=== PATIENT | female | born 1975 | race Caucasian/White ===

== ENCOUNTER 2022-02-24 10:56 | Emergency (ER) | payer OTHER ==
[2022-02-24 11:44] VITALS: BP 117/63; PULSE 94; TEMP 99.3; BMI 27.3
[2022-02-24] MEDS ORDERED: ACETAMINOPHEN 500 MG TABLET (FP) PO ONE (12:52)
[2022-02-24] MEDS ORDERED: ACETAMINOPHEN 325 MG TABLET (FP) ONE (13:33)
[2022-02-24 13:51] LABS: THROAT:GRP A STREP NOT DETECTED (NOTDETECTED)
== END 2022-02-24 15:28 | disposition home or self-care (01) ==
LOC: JER 10:56
DX: R05.1 Acute cough (principal); J02.9 Acute pharyngitis, unspecified; R09.81 Nasal congestion
CPT/HCPCS: 0241U-QW; 71046-TC-FY; 87651; 99284-25

== ENCOUNTER 2022-03-09 23:24 | Emergency (ER) | payer OTHER ==
[2022-03-09 23:53] VITALS: BP 113/72; PULSE 89; TEMP 98.4; BMI 28.9
[2022-03-10] MEDS ORDERED: KETOROLAC TROMETHAMINE 30 MG/1 ML VIAL IM ONE (01:38)
[2022-03-10] MEDS ORDERED: LIDOCAINE 5% TOPICAL PATCH TP ONE (01:38)
[2022-03-10] MEDS ORDERED: KETOROLAC TROMETHAMINE 30 MG/1 ML VIAL ONE (01:42)
[2022-03-10] MEDS ORDERED: LIDOCAINE 5% TOPICAL PATCH ONE (01:42)
[2022-03-10] MEDS ORDERED: LIDOCAINE PATCH REMOVAL MC SCH (22:00)
== END 2022-03-10 03:53 | disposition home or self-care (01) ==
LOC: JER 23:24
PROC: 3E0233Z Introduction of Anti-inflammatory into Muscle, Percutaneous Approach (ICD-10-PCS; principal; 2022-03-09)
DX: M54.50 Low back pain, unspecified (principal)
CPT/HCPCS: 99284-25

== ENCOUNTER 2022-04-03 00:27 | Emergency (ER) | payer OTHER ==
[2022-04-03 00:56] VITALS: BP 113/72; PULSE 74; TEMP 97.6; BMI 28.3
[2022-04-03] MEDS ORDERED: KETOROLAC TROMETHAMINE 30 MG/1 ML VIAL IVPUSH ONE (01:17)
[2022-04-03] MEDS ORDERED: KETOROLAC TROMETHAMINE 30 MG/1 ML VIAL IM ONE (01:23)
[2022-04-03] MEDS ORDERED: KETOROLAC TROMETHAMINE 30 MG/1 ML VIAL ONE (04:33)
== END 2022-04-03 06:19 | disposition home or self-care (01) ==
LOC: JER 00:27
PROC: 3E023GC Introduction of Other Therapeutic Substance into Muscle, Percutaneous Approach (ICD-10-PCS; principal; 2022-04-03)
DX: M79.602 Pain in left arm (principal); R20.2 Paresthesia of skin
CPT/HCPCS: 70450-TC; 72125-TC; 93005; 93010; 96372; 99284-25

== ENCOUNTER 2022-06-04 16:31 | Emergency (ER) | payer OTHER ==
[2022-06-04 16:38] VITALS: BP 110/72; PULSE 73; RESP 18; TEMP 97.8; BMI 27.4
[2022-06-04] MEDS ORDERED: IBUPROFEN 600 MG TABLET (FP) PO ONE ×2 (17:29→17:31)
== END 2022-06-04 18:54 | disposition home or self-care (01) ==
LOC: JERFT 16:31
DX: M79.645 Pain in left finger(s) (principal)
CPT/HCPCS: 73130-TC-LT-FY; 99283-25